=== PATIENT | female | born 1945 | race Caucasian/White ===

== ENCOUNTER 2019-07-23 17:07 | Observation (INO) ==
[2019-07-23 17:54] LABS: Anion Gap 13.2 mmol/L (6.8-13.8); BUN/Creatinine Ratio 21.2 (9.0-21.6); Calcium * 9.6 mg/dL (7.9-10.9); Carbon Dioxide 27.3 mmol/L (24-32.6); Estimated Creat Clear 10.5; Potassium 4.5 mmol/L (3.4-4.6)
[2019-07-23 18:24] LABS: Urine Bilirubin Negative (NEGATIVE); Urine Blood Negative /ul (NEGATIVE); Urine Ketone Negative (NEGATIVE); Urine Protein Negative (NEGATIVE); Urine Urobilinogen Normal (NORMAL); Urine pH 5.5 pH (5.0-7.0)
[2019-07-23 18:33] LABS: Urine Appearance Slightly Cloudy (CLEAR); Urine Bacteria 2+; Urine Color Yellow; Urine Nitrite Positive (NEGATIVE); Urine RBC None Seen /hpf (0-5); Urine WBC 25-50 /hpf (0-5)
[2019-07-23 19:20] LABS: Hematocrit 29.7 % (37.0-47.0); Hemoglobin 9.2 gm/dL (12.5-16.0); Mean Cell Volume 100.7 fl (78-100); Mean Corpuscular Hemoglobin 31.2 pg (27-31); Mean Platelet Volume 13.3 fl (8-12.5); Neutrophil # 5.7 K/mm3 (1.3-6.0); Neutrophil % 78.8 % (42-75.0); Platelet Count 144 K/mm3 (150-450); Red Blood Count 2.95 M/mm3 (4.2-5.4); Red Cell Distribution Width 14.4 % (11.5-14.0); White Blood Count 7.2 K/mm3 (4.0-10.5)
[2019-07-23] MEDS ORDERED: LEVOFLOXACIN IN DEXTROSE 5 % 500 MG/100 ML BAG IV ONE (19:29)
[2019-07-23 19:41] LABS: Prothrombin Time (Patient) 28.9 Seconds (9.1-10.7)
[2019-07-23 19:43] LABS: INR 3.05 INR (0.92-1.08)
--- NOTE | 2019-07-23 19:44 | ERNOTE ---
Medical Problem HPI - Narrative Date of Service: 07/23/19 - General Chief Complaint: Diabetes Related Problem Time Seen by Provider: 07/23/19 17:11 Source: family Exam Limitations: dementia - Immun/Allergies/Home Medications Immunizations: IMMUNIZATION HX Immunizations Up to Date No History of Influenza Vaccine No Hx Pneumococcal Vaccination No Allergies/Adverse Reactions: Allergies amlodipine Allergy (Verified 07/23/19 17:16) unknown amoxicillin Allergy (Verified 07/23/19 17:16) unknown azelastine HCl [From Astelin] Allergy (Verified 07/23/19 17:16) unknown azithromycin Allergy (Verified 07/23/19 17:16) unknown clindamycin Allergy (Verified 07/23/19 17:16) unknown darbepoetin teri [From Aranesp (in polysorbate)] Allergy (Verified 07/23/19 17:16) unknown diphenhydramine [From Benadryl Allergy] Allergy (Verified 07/23/19 17:16) unknown dronedarone [From Multaq] Allergy (Verified 07/23/19 17:16) unknown hydralazine Allergy (Verified 07/23/19 17:16) unknown lorazepam Allergy (Verified 07/23/19 17:16) unknown methylprednisolone [From Medrol] Allergy (Verified 07/23/19 17:16) unknown nystatin Allergy (Verified 07/23/19 17:16) unknown Opioids - Morphine Analogues Allergy (Verified 07/23/19 17:16) unknown pantoprazole Allergy (Verified 07/23/19 17:16) unknown ranitidine Allergy (Verified 07/23/19 17:16) unknown Home Medications: HOME MEDICATIONS Aspirin [Aspirin EC] 81 mg PO DAILY 03/12/15 [Last Taken Unknown] Metolazone [Zaroxolyn] 2.5 mg PO DAILY 03/12/15 [Last Taken Unknown] Simvastatin [Zocor] 20 mg PO HS 03/12/15 [Last Taken Unknown] hydrALAZINE HCL [Apresoline] 50 mg PO BID 03/12/15 [Last Taken Unknown] acetaminophen 500 mg tablet 500 mg PO Q6H PRN 03/20/19 [Last Taken Unknown] bumetanide 2 mg tablet 2 mg PO BID 03/20/19 [Last Taken Unknown] diltiazem HCl 60 mg capsule,extended release 12 hr 60 mg PO BID 03/20/19 [Last Taken Unknown] doxazosin 2 mg tablet 2 mg PO BID tab 03/20/19 [Last Taken Unknown] flecainide 50 mg tablet 50 mg PO Q12H 03/20/19 [Last Taken Unknown] quetiapine 25 mg tablet 25 mg PO DAILY PRN 03/20/19 [Last Taken Unknown] risperidone 1 mg tablet 1 mg PO DAILY 03/20/19 [Last Taken Unknown] venlafaxine 150 mg tablet,extended release 24 hr 150 mg PO DAILY 03/20/19 [Last Taken Unknown] warfarin 2 mg tablet 2 mg PO DAILY 03/20/19 [Last Taken Unknown] Durable Medical Equipment See Rx Instructions .ROUTE .MEDSUPPLY #1 ea 03/22/19 [Last Taken Unknown] [facility] Bed 0 .ROUTE .MEDSUPPLY #1 ea 03/22/19 [Last Taken Unknown] cholecalciferol (vitamin D3) 1,250 mcg (50,000 unit) capsule 50,000 unit PO QWEEK #14 cap 03/25/19 [Last Taken Unknown] nystatin 100,000 unit/gram topical powder 1 applic TP BID #60 g 04/03/19 [Last Taken Unknown] blood sugar diagnostic See Rx Instructions .ROUTE .MEDSUPPLY #100 ea 04/05/19 [Last Taken Unknown] lancets 31 gauge See Rx Instructions .ROUTE .MEDSUPPLY #100 ea 04/05/19 [Last Taken Unknown] safety needles 31 gauge x 5/16" See Rx Instructions .ROUTE .MEDSUPPLY #100 ea 04/08/19 [Last Taken Unknown] insulin aspart U-100 100 unit/mL subcutaneous solution 8 unit SUBCUT TID ml 07/23/19 [Last Taken Unknown] insulin detemir U-100 100 unit/mL subcutaneous solution 13 unit SUBCUT BID ml 07/23/19 [Last Taken Unknown] - History of Present History Narrative: Patient presents via EMS. who cares for her at home gives most of history. She has been more weak and not herself for 1 day. TOday was less responsive and EMS called. BS 29. IV placed and IV dextrose given. Now improved. states not herself, more weak and blood sugars difficult to control. No fever noted. Patient has dementia compromising history. She denies pain but unclear how reliable this is. Timing: other - fluctuating Severity: severe Modifying Factors - (Improves): Present: other - IV dextrose Modifying Factors - (Worsens): Present: other - nothing Review of Systems - Narrative Narrative: unable to obtain in entirety d/t dementia Medical History (Last Reviewed 07/23/19 @ 19:40 by Raymond Avilez MD) Cutaneous candidiasis (Acute) Using athletes foot spray. Working well. Pre-Operative Examination (Chronic) Diabetes (Chronic) Alzheimer's type dementia with late onset without behavioral disturbance (Chronic) Weakness (Chronic) Dependent edema (Chronic) Cochlear implant in place (Chronic) Atrial fibrillation (Chronic) Anemia Arthritis Atrial fibrillation CHF (congestive heart failure) Diabetes Fistula fistula placement right arm for dialysis Hypertension Muscle weakness Obesity Renal failure Sleep apnea Mammogram normal 2016 Surgical History: Surgical History (Last Reviewed 07/23/19 @ 19:40 by Raymond Avilez MD) History of carpal tunnel release Onset Date: ~05/27/19 [facility]- Left H/O colonoscopy 2014 Total knee replacement status bilateral Family History: Family History (Last Reviewed 07/23/19 @ 19:40 by Raymond Avilez MD) Mother Cardiomyopathy Father COPD (chronic obstructive pulmonary disease) Social History: (Last Reviewed 07/23/19 @ 19:40 by Raymond Avilez MD) Social History: usp: No Marital status: household members: spouse current occupational status: retired Highest education level completed: Associate degree: occupat Service: No Tobacco: Smoking Status: Never smoker Alcohol: alcohol intake: current Substance Use: substance use type: does not use Dietary Habits: caffeine: Yes Physical Exam - Physical Exam General Appearance: Present: no apparent distress Head Exam: Present: normal inspection, no evidence of injury Eye Exam: Normal inspection: bilateral, PERRL: bilateral Ears, Nose, Throat: Present: normal ENT inspection Neck: Present: normal inspection Respiratory: Present: no respiratory distress, normal breath sounds, no accessory muscle use, lungs clear Cardiovascular/Chest: Present: regular rate, rhythm Gastrointestinal/Abdominal: Present: normal bowel sounds, nontender, soft Back Exam: Absent: CVA tenderness (R), CVA tenderness (L) Extremity Exam: Present: other - no deformity Neurological Exam: Present: alert, other - NIH - 0. Dementia noted. No acute unilateral focal motor or sensory deficits noted. Skin Exam: Present: normal color, warm/dry Progress - Results and Orders Patient's Lab Results:: I have reviewed the patient's lab results. - Vital Signs Patient's Vital Signs:: I have reviewed the patient's vital signs. Vital Signs: Vital Signs 07/23/19 17:12 07/23/19 17:15 07/23/19 17:25 Temperature 36.5 C Pulse Rate 50 L 48 L 48 L Respiratory Rate 15 Blood Pressure 116/67 120/36 O2 Sat by Pulse Oximetry 96 95 07/23/19 18:39 07/23/19 18:55 Temperature Pulse Rate 48 L 50 L Respiratory Rate 18 20 Blood Pressure 127/42 102/63 O2 Sat by Pulse Oximetry 94 94 - Progress/Reassessment Chief Complaint: Diabetes Related Problem Progress Note-Subjective: 07/23/19 19:41 Patient has UTI with increased generalized weakness and dementia. She had labile blood sugars requiring IV dextrose and despite IV dextrose and juice/meal, still with blood sugars that are concerning for repeat hypoglycemia. She will need close BS monitoring. Aleksander does not feel he can do this at home with her dementia/weakness/UTI and low blood sugar already requiring EMS transfer. Given this I disucssed the xcase with Dr Delgado who will admit obs. Also would like home health help at home which I think would be very reasonable.. Departure Clinical Impression: UTI (urinary tract infection), Hypoglycemia, Blood glucose labile, Dementia, CRF (chronic renal failure) - Departure Disposition: Still a patient Condition: Fair Referrals: Todd Granger DO [Primary Care Provider] -
--- NOTE | 2019-07-23 21:10 | HP ---
Chief Complaint - Chief Complaint Date of Service: 07/23/19 Time of Service: 20:49 History of Present Illness: Yoko Evans is a 74-year-old white female with past medical history of diabetes mellitus type 2, chronic atrial fibrillation, CVA, dementia, chronic renal failure stage IV, patient of Dr. Granger, who was admitted on 07/23/2019 because decreased responsiveness. The patient was brought to the emergency room by EMS after being called by the patient's for decreased responsiveness. EMS checked her sugar and it was just 29. They gave her IV dextrose (D50) and patient blood sugar went up to 80. Per the patient has not been her usual self for the last few days with weakness and labile blood sugars. He has been said that she did not have any fever or chills. The patient is awake alert oriented x3. She remembers that she got to the hospital because her blood sugar was low. She said that she did not miss her meal and she gave herself 12 units of insulin. The patient does have a history of dementia and it is unclear how reliable this is. Her white blood cell count was normal, hemoglobin 9.2, MCV 100.7, platelet of 144, BUN/creatinine of 91/4.29 with a GFR of 11. Her INR was 3.08. Her urinalysis showed positive nitrate, positive leukocyte esterase, pyuria, bacteriuria. She was given containers of OJ in the emergency room and given IV Levaquin and was admitted for observation. Medical History (Last Reviewed 07/23/19 @ 20:12 by Tonny Garcia RN) Cutaneous candidiasis (Acute) Using athletes foot spray. Working well. Pre-Operative Examination (Chronic) Diabetes (Chronic) Alzheimer's type dementia with late onset without behavioral disturbance (Chronic) Weakness (Chronic) Dependent edema (Chronic) Cochlear implant in place (Chronic) Atrial fibrillation (Chronic) Anemia Arthritis Atrial fibrillation CHF (congestive heart failure) Diabetes Fistula fistula placement right arm for dialysis Hypertension Muscle weakness Obesity Renal failure Sleep apnea Mammogram normal 2016 Surgical History: Surgical History (Last Reviewed 07/23/19 @ 20:12 by Tonny Garcia RN) History of carpal tunnel release Onset Date: ~05/27/19 [facility]- Left H/O colonoscopy 2014 Total knee replacement status bilateral Family History: Family History (Last Reviewed 07/23/19 @ 20:12 by Tonny Garcia RN) Mother Cardiomyopathy Father COPD (chronic obstructive pulmonary disease) Social History: (Last Reviewed 07/23/19 @ 20:12 by Tonny Garcia RN) Social History: jail: No Marital status: household members: spouse current occupational status: retired Highest education level completed: Associate degree: occupat Service: No Tobacco: Smoking Status: Never smoker Alcohol: alcohol intake: current Substance Use: substance use type: does not use Dietary Habits: caffeine: Yes Review Of Systems (GEN) - Review of Systems Generalized/Overall Review: Present: Weakness. Absent: Chills, Fever EENTM: Absent: Blurred Vision Respiratory: Absent: Cough, Shortness of Breath, Orthopnea Cardiac: Absent: Chest Pain, Edema, Palpitations Abdominal: Absent: Nausea, Vomiting, Abdominal Pain Genitourinary: Absent: Urgency, Frequency Musculoskeletal: Absent: Joint Pain Neurological: Absent: Headache Skin: Absent: Lesions, Rash Misc: All systems neg except as marked - unsure how reiable her ROS is due to her Dmentia history Immunizations: IMMUNIZATION HX Immunizations Up to Date No History of Influenza Vaccine No Hx Pneumococcal Vaccination No Allergies/Adverse Reactions: Allergies Allergy/AdvReac Type Severity Reaction Status Date / Time amlodipine Allergy unknown Verified 07/23/19 20:12 amoxicillin Allergy unknown Verified 07/23/19 20:12 azelastine HCl [From Astelin] Allergy unknown Verified 07/23/19 20:12 azithromycin Allergy unknown Verified 07/23/19 20:12 clindamycin Allergy unknown Verified 07/23/19 20:12 darbepoetin teri Allergy unknown Verified 07/23/19 20:12 [From Aranesp (in polysorbate)] diphenhydramine Allergy unknown Verified 07/23/19 20:12 [From Benadryl Allergy] dronedarone [From Multaq] Allergy unknown Verified 07/23/19 20:12 hydralazine Allergy unknown Verified 07/23/19 20:12 lorazepam Allergy unknown Verified 07/23/19 20:12 methylprednisolone Allergy unknown Verified 07/23/19 20:12 [From Medrol] nystatin Allergy unknown Verified 07/23/19 20:12 Opioids - Morphine Analogues Allergy unknown Verified 07/23/19 20:12 pantoprazole Allergy unknown Verified 07/23/19 20:12 ranitidine Allergy unknown Verified 07/23/19 20:12 Home Medications: HOME MEDICATIONS Aspirin [Aspirin EC] 81 mg PO DAILY 03/12/15 [Last Taken Unknown] Metolazone [Zaroxolyn] 2.5 mg PO DAILY 03/12/15 [Last Taken Unknown] Simvastatin [Zocor] 20 mg PO HS 03/12/15 [Last Taken Unknown] hydrALAZINE HCL [Apresoline] 50 mg PO BID 03/12/15 [Last Taken Unknown] acetaminophen 500 mg tablet 500 mg PO Q6H PRN 03/20/19 [Last Taken Unknown] bumetanide 2 mg tablet 2 mg PO BID 03/20/19 [Last Taken Unknown] diltiazem HCl 60 mg capsule,extended release 12 hr 60 mg PO BID 03/20/19 [Last Taken Unknown] doxazosin 2 mg tablet 2 mg PO BID tab 03/20/19 [Last Taken Unknown] flecainide 50 mg tablet 50 mg PO Q12H 03/20/19 [Last Taken Unknown] quetiapine 25 mg tablet 25 mg PO DAILY PRN 03/20/19 [Last Taken Unknown] risperidone 1 mg tablet 1 mg PO DAILY 03/20/19 [Last Taken Unknown] venlafaxine 150 mg tablet,extended release 24 hr 150 mg PO DAILY 03/20/19 [Last Taken Unknown] warfarin 2 mg tablet 2 mg PO DAILY 03/20/19 [Last Taken Unknown] Durable Medical Equipment See Rx Instructions .ROUTE .MEDSUPPLY #1 ea 03/22/19 [Last Taken Unknown] [facility] Bed 0 .ROUTE .MEDSUPPLY #1 ea 03/22/19 [Last Taken Unknown] cholecalciferol (vitamin D3) 1,250 mcg (50,000 unit) capsule 50,000 unit PO QWEEK #14 cap 03/25/19 [Last Taken Unknown] nystatin 100,000 unit/gram topical powder 1 applic TP BID #60 g 04/03/19 [Last Taken Unknown] blood sugar diagnostic See Rx Instructions .ROUTE .MEDSUPPLY #100 ea 04/05/19 [Last Taken Unknown] lancets 31 gauge See Rx Instructions .ROUTE .MEDSUPPLY #100 ea 04/05/19 [Last Taken Unknown] safety needles 31 gauge x 5/16" See Rx Instructions .ROUTE .MEDSUPPLY #100 ea 04/08/19 [Last Taken Unknown] insulin aspart U-100 100 unit/mL subcutaneous solution 8 unit SUBCUT TID ml 07/23/19 [Last Taken Unknown] insulin detemir U-100 100 unit/mL subcutaneous solution 13 unit SUBCUT BID ml 07/23/19 [Last Taken Unknown] Exam - Exam Vital Signs: Vital Signs - Last Taken Temp 36.5 C 07/23/19 20:13 Pulse 57 L 07/23/19 20:13 Resp 18 07/23/19 20:13 BP 127/42 07/23/19 20:13 Pulse Ox 97 07/23/19 20:13 Constitutional: Present: Alert, Oriented x3, Cooperative, Morbidly obese ENT Exam: Present: hard of hearing Eye Exam: bilateral eye: normal inspection, PERRL, EOMI Neck: Present: limited range of motion. Absent: lymphadenopathy (R), lymphadenopathy (L) Respiratory: Present: decreased breath sounds, No rales, No wheezing Cardiovascular/Chest: Present: no JVD, no murmur, irregularly irregular Abdomen: Present: Normal bowel sounds, soft, nontender, obese Extremity: Present: no calf tenderness, pedal edema Neurologic: Present: see wheeler II-XII nml as tested, alert, oriented x 3, motor we akness - right hemiparesis Diagnostic Studies: Abnormal Lab Results 07/23/19 07/23/19 07/23/19 Range/Units 17:38 17:38 17:38 RBC 2.95 L (4.2-5.4) M/mm3 Hgb 9.2 L (12.5-16.0) gm/dL Hct 29.7 L (37.0-47.0) % MCV 100.7 H (78-100) fl MCH 31.2 H (27-31) pg MCHC 31.0 L (32-36) g/dl RDW 14.4 H (11.5-14.0) % Plt Count 144 L (150-450) K/mm3 MPV 13.3 H (8-12.5) fl Neutrophils % 78.8 H (42-75.0) % Lymphocytes % 7.6 L (20-51) % Monocytes % 10.5 H (0.0-9) % Lymphocytes # 0.55 L (1.5-3.5) k/mm3 PT 28.9 H (9.1-10.7) Seconds INR (Anticoag Therapy) 3.05 H (0.92-1.08) INR BUN 91 H (3-23) mg/dL Creatinine 4.29 H D (0.4-1.4) mg/dL Est GFR (Non-Af Amer) 11 L (60-130) mL/min Urine Nitrate (NEGATIVE) Ur Leukocyte Esterase (NEGATIVE) /ul Urine WBC (0-5) /hpf Ur Epithelial Cells (0-5) /hpf Urine Bacteria (NONE) 07/23/19 Range/Units 18:16 RBC (4.2-5.4) M/mm3 Hgb (12.5-16.0) gm/dL Hct (37.0-47.0) % MCV (78-100) fl MCH (27-31) pg MCHC (32-36) g/dl RDW (11.5-14.0) % Plt Count (150-450) K/mm3 MPV (8-12.5) fl Neutrophils % (42-75.0) % Lymphocytes % (20-51) % Monocytes % (0.0-9) % Lymphocytes # (1.5-3.5) k/mm3 PT (9.1-10.7) Seconds INR (Anticoag Therapy) (0.92-1.08) INR BUN (3-23) mg/dL Creatinine (0.4-1.4) mg/dL Est GFR (Non-Af Amer) (60-130) mL/min Urine Nitrate Positive H (NEGATIVE) Ur Leukocyte Esterase 75 H (NEGATIVE) /ul Urine WBC 25-50 H (0-5) /hpf Ur Epithelial Cells 5-10 H (0-5) /hpf Urine Bacteria 2+ H (NONE) Laboratory Results WBC 7.2 K/mm3 (4.0-10.5) 07/23/19 17:38 RBC 2.95 M/mm3 (4.2-5.4) L 07/23/19 17:38 Hgb 9.2 gm/dL (12.5-16.0) L 07/23/19 17:38 Hct 29.7 % (37.0-47.0) L 07/23/19 17:38 MCV 100.7 fl (78-100) H 07/23/19 17:38 MCH 31.2 pg (27-31) H 07/23/19 17:38 MCHC 31.0 g/dl (32-36) L 07/23/19 17:38 RDW 14.4 % (11.5-14.0) H 07/23/19 17:38 Plt Count 144 K/mm3 (150-450) L 07/23/19 17:38 MPV 13.3 fl (8-12.5) H 07/23/19 17:38 Immature Gran % (Auto) 0.30 % (0.001-0.429) 07/23/19 17:38 Immature Gran # (Auto) 0.02 K/mm3 (0.000-0.0310) 07/23/19 17:38 Neutrophils % 78.8 % (42-75.0) H 07/23/19 17:38 Lymphocytes % 7.6 % (20-51) L 07/23/19 17:38 Monocytes % 10.5 % (0.0-9) H 07/23/19 17:38 Eosinophils % 2.2 % (0.0-3.0) 07/23/19 17:38 Basophils % 0.6 % (0.0-1.0) 07/23/19 17:38 Nucleated RBC % 0.0 k/mm3 (0-1) 07/23/19 17:38 Neutrophils # 5.7 K/mm3 (1.3-6.0) 07/23/19 17:38 Lymphocytes # 0.55 k/mm3 (1.5-3.5) L 07/23/19 17:38 Monocytes # 0.8 k/mm3 (0.0-1.0) 07/23/19 17:38 Eosinophils # 0.2 k/mm3 (0.0-0.7) 07/23/19 17:38 Absolute Basophils 0.0 k/mm3 (0.0-0.1) 07/23/19 17:38 PT 28.9 Seconds (9.1-10.7) H 07/23/19 17:38 INR (Anticoag Therapy) 3.05 INR (0.92-1.08) H 07/23/19 17:38 Sodium 142 mmol/L (132-142) 07/23/19 17:38 Plasma Sodium 142 mmol/L (130-142) 07/23/19 17:38 Potassium 4.5 mmol/L (3.4-4.6) 07/23/19 17:38 Chloride 106 mmol/L (97-106) 07/23/19 17:38 Carbon Dioxide 27.3 mmol/L (24-32.6) 07/23/19 17:38 Anion Gap 13.2 mmol/L (6.8-13.8) 07/23/19 17:38 BUN 91 mg/dL (3-23) H 07/23/19 17:38 Creatinine 4.29 mg/dL (0.4-1.4) H D 07/23/19 17:38 Est GFR (Non-Af Amer) 11 mL/min (60-130) L 07/23/19 17:38 BUN/Creatinine Ratio 21.2 (9.0-21.6) 07/23/19 17:38 Random Glucose 80 mg/dL (70-110) D 07/23/19 17:38 Calcium 9.6 mg/dL (7.9-10.9) 07/23/19 17:38 Urine Color Yellow 07/23/19 18:16 Urine Appearance Slightly cloudy (CLEAR) 07/23/19 18:16 Urine pH 5.5 pH (5.0-7.0) 07/23/19 18:16 Ur Specific Jennings 1.020 SP.GR. (1.005-1.010) 07/23/19 18:16 Urine Protein Negative mg/dL (NEGATIVE) 07/23/19 18:16 Urine Glucose (UA) Negative mg/dL (NEGATIVE) 07/23/19 18:16 Urine Ketones Negative mg/dL (NEGATIVE) 07/23/19 18:16 Urine Blood Negative /ul (NEGATIVE) 07/23/19 18:16 Urine Nitrate Positive (NEGATIVE) H 07/23/19 18:16 Urine Bilirubin Negative mg/dl (NEGATIVE) 07/23/19 18:16 Urine Urobilinogen Normal EU/dl (NORMAL) 07/23/19 18:16 Ur Leukocyte Esterase 75 /ul (NEGATIVE) H 07/23/19 18:16 Urine RBC None seen /hpf (0-5) 07/23/19 18:16 Urine WBC 25-50 /hpf (0-5) H 07/23/19 18:16 Ur Epithelial Cells 5-10 /hpf (0-5) H 07/23/19 18:16 Urine Bacteria 2+ (NONE) H 07/23/19 18:16 Urine Culture Comments Culture to follow 07/23/19 18:16 Influenza Type A Ag Negative (NEGATIVE) 07/23/19 18:16 Influenza Type B Ag Negative (NEGATIVE) 07/23/19 18:16 Group A Strep Rapid Negative (NEGATIVE) 07/23/19 18:16 Assessment/Plan - Narrative Narrative: Yoko is a 74-year-old white female admitted for altered mental status being less responsive due to hypoglycemia from insulin reaction. She has acute on chronic renal failure with urinary tract infection. Her creatinine on 07/22/2019 was 3.87 with a BUN 84 and today is 4.29 with a BUN 91. This could have reduced the clearance of her insulin causing it to linger longer in her system and causing hypoglycemia. We will gently hydrate her at 30 mL/min and recheck BMP late in the morning. Her potassium is still within normal limits. She is now in stage V chronic renal failure and will likely need hemodialysis in the very near future. She does have an AV fistula on her arm we will continue with her IV antibiotics pharmacy to adjust dose per creatinine clearance. We will continue with monitoring her blood sugar overnight. Will do Accu-Chek q. before meals nightly with low-dose coverage protocol and will hold her long-acting insulin for now. Will hold her Coumadin for now. - Assessment/Plan (1) Weakness Problem: Acute (2) UTI (urinary tract infection) Problem: Acute Qualifiers: Urinary tract infection type: acute cystitis Hematuria presence: without hematuria Qualified Code(s): N30.00 - Acute cystitis without hematuria (3) Hypoglycemia Problem: Acute (4) Dementia Problem: Acute (5) CRF (chronic renal failure) Assessment: acute on chronic Problem: Chronic Qualifiers: Chronic kidney disease stage: stage 5 Qualified Code(s): N18.5 - Chronic kidney disease, stage 5 (6) Diabetes Problem: Chronic Qualifiers: (7) Atrial fibrillation Problem: Chronic Qualifiers: Atrial fibrillation type: longstanding persistent Qualified Code(s): I48.11 - Longstanding persistent atrial fibrillation
[2019-07-23] MEDS ORDERED: NORMAL SALINE 1,000 ML IV PRN (21:28)
[2019-07-23] MEDS ORDERED: ACETAMINOPHEN 500 MG TABLET PO PRN (21:29)
[2019-07-23] MEDS: FLECAINIDE ACETATE 100 MG TABLET PO SCH (22:03)
[2019-07-24] MEDS: INSULIN LISPRO 100 UNITS/ML VIAL SC SCH ×2 (07:29→11:58)
[2019-07-24 07:56] LABS: Prothrombin Time (Patient) 27.9 Seconds (9.1-10.7)
[2019-07-24 07:59] LABS: INR 2.94 INR (0.92-1.08)
[2019-07-24] MEDS: FLECAINIDE ACETATE 100 MG TABLET PO SCH (08:46)
[2019-07-24] MEDS ORDERED: DOXAZOSIN MESYLATE 2 MG TABLET PO SCH (09:00)
[2019-07-24] MEDS ORDERED: DILTIAZEM HCL 120 MG CAP.SR.24H PO SCH (09:00)
[2019-07-24] MEDS ORDERED: DILTIAZEM HCL 60 MG CAP.SR.12H PO SCH (09:00)
[2019-07-24] MEDS ORDERED: hydrALAZINE HCL 50 MG TABLET PO SCH (09:00)
[2019-07-24] MEDS ORDERED: HYDROcodone/ACETAMINOPHEN 1 EACH TABLET PO PRN (12:58)
[2019-07-24] MEDS ORDERED: VENLAFAXINE HCL 150 MG CAP.SR.24H PO SCH (13:00)
[2019-07-24] MEDS ORDERED: [UNRECOGNIZED DRUG - OTHER] TP SCH (13:00)
[2019-07-24] MEDS ORDERED: WARFARIN SODIUM 2 MG TABLET PO SCH (17:00)
[2019-07-24] MEDS ORDERED: INSULIN LISPRO 100 UNITS/ML VIAL SC SCH (17:00)
--- NOTE | 2019-07-24 18:43 | DS ---
(1) Hypoglycemia Problem: Acute (2) Diabetes Problem: Chronic Qualifiers: Diabetes mellitus type: type 2 Diabetes mellitus mcc insulin use: with mcc use Diabetes mellitus complication status: with kidney compl ications Diabetes mellitus complication detail: with nephropathy Qualified Code(s): E11.21 - Type 2 diabetes mellitus with diabetic nephropathy; Z79.4 - watermaster (current) use of insulin (3) Chronic kidney disease, stage IV (severe) Problem: Acute (4) Weakness Problem: Acute (5) Dependent edema Problem: Chronic (6) Atrial fibrillation Problem: Chronic Qualifiers: Atrial fibrillation type: longstanding persistent Qualified Code(s): I48.11 - Longstanding persistent atrial fibrillation Date of Discharge:: 07/24/19 Hospital Course: Yoko Evans is a 74-year-old female well-known to me who has insulin-dependent diabetes. She had come to the office yesterday and was not very verbal but there was not any signs of low blood sugar such as diaphoresis, tachypnea, or confusion. She is usually very conversational. I ordered blood work and the blood sugar came back at 29. We immediately try to call her and was unable to reach him. They did reach him the following morning and he said that he had noted her blood sugar had got low and that they had fed her and they went out to eat and her blood sugar was up to about 90. And then she had another hypoglycemic event and was near having a seizure. Apparently she became obtunded and her eyes rolled back and appeared that she was going to have a seizure. He called 911 and her blood sugar was in the 20s again. She was treated with glucose and brought to the hospital. Her hemoglobin A1c was 6.1 which is in a prediabetes range. However she is having low blood sugars and that needs to be raised. I have reduced her insulins. Her stay today has been uneventful. She has been eating well. The last blood sugar was 208. She feels that she can go home and she will be cared for by her continuously. Procedures Performed: none Results and Findings: Pending Mircobiology Results 07/23/19 18:16 Urine,Voided Urine Culture - Preliminary Gram Negative Bacilli Lab Pending Results 07/23/19 17:38: Sodium 142, Plasma Sodium 142, Potassium 4.5, Chloride 106, Carbon Dioxide 27.3, Anion Gap 13.2, BUN 91 H, Creatinine 4.29 H D, Est GFR (Non-Af Amer) 11 L, BUN/Creatinine Ratio 21.2, Random Glucose 80 D, Calcium 9.6 07/23/19 17:38: WBC 7.2, RBC 2.95 L, Hgb 9.2 L, Hct 29.7 L, MCV 100.7 H, MCH 31.2 H, MCHC 31.0 L, RDW 14.4 H, Plt Count 144 L, MPV 13.3 H, Immature Gran % (Auto) 0.30, Immature Gran # (Auto) 0.02, Neutrophils % 78.8 H, Lymphocytes % 7.6 L, Monocytes % 10.5 H, Eosinophils % 2.2, Basophils % 0.6, Nucleated RBC % 0.0, Neutrophils # 5.7, Lymphocytes # 0.55 L, Monocytes # 0.8, Eosinophils # 0.2, Absolute Basophils 0.0 07/23/19 17:38: PT 28.9 H, INR (Anticoag Therapy) 3.05 H 07/23/19 18:16: Urine Color Yellow, Urine Appearance Slightly cloudy, Urine pH 5.5, Ur Specific [place] 1.020, Urine Protein Negative, Urine Glucose (UA) Negative, Urine Ketones Negative, Urine Blood Negative, Urine Nitrate Positive H, Urine Bilirubin Negative, Urine Urobilinogen Normal, Ur Leukocyte Esterase 75 H, Urine RBC None seen, Urine WBC 25-50 H, Ur Epithelial Cells 5-10 H, Urine Bacteria 2+ H, Urine Culture Comments Culture to follow 07/23/19 18:16: Group A Strep Rapid Negative 07/23/19 18:16: Influenza Type A Ag Negative, Influenza Type B Ag Negative 07/24/19 07:39: PT 27.9 H, INR (Anticoag Therapy) 2.94 H Discharge Location: Home Disposition: Home self-care Condition: Good Face to Face Encounter completed per CMS Guidelines: No Discharge Activity: Activity as tolerated Discharge Diet: Consistent carbs Additional Patient Instructions (free text): See Dr. Granger in the office in 10 days. Complete Home Medications List: Complete Home Medication List: Metolazone [Zaroxolyn] 2.5 mg PO MOWEFR 03/12/15 Simvastatin [Zocor] 20 mg PO HS 03/12/15 hydrALAZINE HCL [Apresoline] 50 mg PO BID 03/12/15 acetaminophen 500 mg tablet 500 mg PO Q6H PRN 03/20/19 doxazosin 2 mg tablet 2 mg PO BID tab 03/20/19 risperidone 1 mg tablet 1 mg PO HS 03/20/19 warfarin 2 mg tablet 2 mg PO SUMOTUTHFRSA 03/20/19 Durable Medical Equipment See Rx Instructions .ROUTE .MEDSUPPLY #1 ea 03/22/19 [facility] Bed 0 .ROUTE .MEDSUPPLY #1 ea 03/22/19 cholecalciferol (vitamin D3) 1,250 mcg (50,000 unit) capsule 50,000 unit PO QWEEK #14 cap 03/25/19 nystatin 100,000 unit/gram topical powder 1 applic TP BID #60 g 04/03/19 blood sugar diagnostic See Rx Instructions .ROUTE .MEDSUPPLY #100 ea 04/05/19 lancets 31 gauge See Rx Instructions .ROUTE .MEDSUPPLY #100 ea 04/05/19 safety needles 31 gauge x 5/16" See Rx Instructions .ROUTE .MEDSUPPLY #100 ea 04/08/19 Allopurinol [Zyloprim] 100 mg PO DAILY 07/24/19 Amiodarone HCl 200 mg PO DAILY 07/24/19 Bumetanide 2 mg PO Q48H #60 07/24/19 Calcitriol 0.25 mcg PO DAILY 07/24/19 Calcium Acetate 667 mg PO TID 07/24/19 Ferrous Sulfate 324 mg PO DAILY 07/24/19 HYDROcodone/ACETAMINOPHEN [Hydrocodone-Acetamin 5-325 mg] 2 ea PO Q6H PRN 07/24/19 Insulin Detemir [Levemir] 11 units SC BID vial 07/24/19 Insulin Lispro [Humalog] 7 units SC ACINS #10 vial 07/24/19 Metoprolol Tartrate [Lopressor] 50 mg PO BID 07/24/19 Olopatadine HCl 1 drp EACHEYE DAILY 07/24/19 Venlafaxine HCl [Venlafaxine HCl ER] 150 mg PO DAILY 07/24/19 Warfarin Sodium 4 mg PO WE 07/24/19
[2019-07-24 19:22] VITALS: BP 155/61
[2019-07-24] MEDS ORDERED: METOPROLOL TARTRATE 50 MG TABLET PO SCH (21:00)
[2019-07-24] MEDS ORDERED: INSULIN DETEMIR 100 UNITS/ML VIAL SC SCH (21:00)
[2019-07-24] MEDS ORDERED: risperiDONE 1 MG TABLET PO SCH (21:00)
[2019-07-24] MEDS ORDERED: SIMVASTATIN 20 MG TABLET PO SCH (21:00)
[2019-07-25] MEDS ORDERED: ALLOPURINOL 100 MG TABLET PO SCH (09:00)
[2019-07-25] MEDS ORDERED: AMIODARONE HCL 200 MG TABLET PO SCH (09:00)
[2019-07-25] MEDS ORDERED: FERROUS SULFATE 325 MG TABLET PO SCH (09:00)
[2019-07-25] MEDS ORDERED: OLOPATADINE HCL 50 DROP BTL EACHEYE SCH (09:00)
== END 2019-07-24 19:35 | disposition home or self-care (01) ==
LOC: ER 17:07 → MS 17:07
PROVIDERS: ADMIT Internal Medicine; ATTEND Family Medicine
CPT/HCPCS: 36415; 80048; 81001; 85025; 85610; 87081; 87086; 87400; 87430; 87449; 94660; 96365; 96372; 99285; G0378